=== PATIENT | male | born 1955 | race Caucasian/White ===

== ENCOUNTER 2016-10-01 08:17 | Inpatient (IN) | payer MEDICARE ==
--- NOTE | ~2016-10-01 | CR144 ---
[facility] A Service of [facility] & [facility] RADIOLOGY TEXT RESULTS PATIENT: DARYL RAMIREZ LOCATION: [facility] 45- : 54 UNIT #: [id number] AGE: [address]: Ajit Segura MD SEX: M ORDER DR: [id number] [facility] [address] [facility]. [place], [place] [address] [id number] MR#: [id number] Acc #: [id number] NAME: DARYL RAMIREZ. : 1955 SEX: M STUDY DATE/TIME: 10/01/2016 12:15 UNIT: [facility] ROOM: [facility] STUDY DESCRIPTION: CR Hip 1 View Lt Attending Physician: Ajit Segura M.D. Ordering Physician: Ajit Segura M.D. Primary Care Physician: Alberto Lyles MEDICAL IMAGING REPORT This report is preliminary unless electronic signature is present EXAM Left hip one-view DATE OF STUDY: 10/01/2016. COMPARISON STUDY: 07/31/2016 HISTORY Status post left hip arthroplasty. Single AP view is obtained immediately postoperatively. The left hip prosthesis appears in appropriate position and alignment. CONCLUSION Expected postop appearance following left total hip arthroplasty. Dictated by... Bruce Terrazas M.D. THIS IS AN ELECTRONICALLY VERIFIED REPORT Bruce Terrazas M.D. at 10/01/2016 5:06 PM LAURA/danika TD: 10/01/2016 14:05 JOB #: [id number] MEDICAL IMAGING REPORT COPY
--- NOTE | ~2016-10-01 | DS ---
Unit #: [id number] #: [id number] Patient: DARYL WILSON [id number] [address] [address] [id number] MR#: [id number] NAME: DARYL WILSON ROOM: 459 Age: 61 Sex: M Admission Date: 10/01/2016 : 1955 Discharge Date: 10/02/2016 Attending Physician: Ajit Segura M.D. Primary Care Physician: Alberto Lyles DISCHARGE SUMMARY ADMITTING DIAGNOSIS Left hip osteoarthritis. DISCHARGE DIAGNOSIS Left hip osteoarthritis. HOSPITAL COURSE On 10/01/2016, Mr. Wilson was admitted and underwent a left total hip arthroplasty. Tolerated the procedure well. He was transported to the 4th floor where he underwent physical therapy, medical management and anticoagulation therapy. He is doing well and is ready to be discharged. DISPOSITION Stable. DISCHARGE Discharge home with home health. MEDICATIONS Medications on discharge include his routine home meds in addition to [place] 10/325. He is on Coumadin although his dose today is held. FOLLOWUP AND INSTRUCTIONS Mr. Wilson is going to be discharged home with home health. The patient is on Coumadin for DVT prophylaxis. The PT and INR is to be drawn every Saturday and in addition to tomorrow. Please call the results in at [phone] or fax to [phone], attention Tenzin. Skin gurwinder are to be DC'd two weeks postop. Physical therapy is to be done for ambulation and dislocation precautions. The patient is on a walker for four weeks and a cane for an additional two weeks. Followup appointment with Dr. Segura is in six weeks. Please call our office for that appointment date and time. Dictated by... Jennifer MerchantC. for Ajit Segura M.D. ALICIA/katrin TD: 10/05/2016 05:47 JOB #: [id number] Unit #: [id number] #: [id number] Patient: DARYL WILSON DISCHARGE SUMMARY X Sonali Lozano X DISCHARGE SUMMARY
--- NOTE | ~2016-10-01 | OR ---
Unit #: [id number] #: [id number] Patient: DARYL RAMIREZ [id number] [facility]. [place], [place] [address] [id number] MR#: [id number] NAME: DARYL RAMIREZ ROOM: 459 Date of Procedure: 10/01/2016 Admission Date: 10/01/2016 Surgeon: Ajit Segura M.D. : 1955 Attending Physician: Ajit Segura M.D. Primary Care Physician: Alberto Lyles OPERATIVE REPORT PREOPERATIVE DIAGNOSIS Avascular necrosis of left hip. POSTOPERATIVE DIAGNOSIS Avascular necrosis of left hip. PROCEDURE PERFORMED Left total hip. ASSISTANTS Sonali Lozano and Meir Harding. ANESTHESIA General. ESTIMATED BLOOD LOSS 500 mL. INDICATIONS FOR SURGERY This is a 61-year-old gentleman with severe pain in his left hip. He has had pain for months. It is getting progressively worse. At first, they thought it was coming from his back. Did get x-rays which eventually showed in the left hip with clots and arthritis. He is brought to the hospital today for left total hip replacement. DESCRIPTION OF PROCEDURE The patient was brought to the holding room given 2 g Kefzol. This will be continued postop, but discontinued within 23 hours the start time of surgery. He was then given a general anesthetic, placed on decubitus position with the left side up. The left hip was prepped and draped in a sterile fashion. A modified Aufranc incision was mapped out and made. The subcu dissected away and the fascia split longitudinally. Short rotators were taken down with the cautery unit. The posterior hip capsule was identified and this was T'd open. The hip was then dislocated. The neck osteotomy performed and the head fragment removed. Femur retracted anteriorly. The labrum debrided and the acetabulum was reamed up to a size 55. A 56 mm pinnacle Gription cup was inserted in 40 degrees of abduction and 20 degrees of forward flexion. Piriformis sinus was cleaned out with a rongeur and a knife. Starter reamer was passed down. Rigid reamers were used up to a size 5 and the broaches were used up to a size 5. Trial reduction was carried out. We found we needed a standard 36 trial head appropriate leg length and good stability. We then Unit #: [id number] #: [id number] Patient: DARYL RAMIREZ removed all the trials. The incision was injected with the ropivacaine mixture. The real liner was impacted into the cup. We used a +14 degrees femoral component was impacted into the femur in 20 degrees of anteversion we did an another trial reduction with a 1.5, 36 head trial. Once again the stability was excellent in all directions and leg lengths were appropriate so the real components were opened and assembled, and the patient had the hip reduced, irrigated with Betadine and bacitracin. The capsule was repaired with 0 Vicryl. The fascia was closed with a running #2 STRATAFIX suture. The subcu was closed with 0 and 2-0 Vicryl and gurwinder in the skin. periodontal assistant, Sonali Lozano was present throughout the entire case. Dictated by... Kermit Mccallum/kj TD: 10/01/2016 20:27 JOB #: [id number] OPERATIVE REPORT X Ajit Segura MD X PROCEDURE OPERATIVE NOTE
[~2016-10-01 08:17] MED LIST: DIAZEPAM10 MG PO; EFFEXOR75 MG PO; GABAPENTIN400 M2 PO; MOBIC PO; MULTI VITAMIN1 EACH PO; OXYCODONE HCL20 M1 PO; VITAMIN C500 M1 PO; ZYRTEC10 M1 PO
[2016-10-01 09:18] LABS: HEMATOCRIT 38.6 % (38.0-50.0); HEMOGLOBIN 13.6 gm/dL (13.0-16.0); MEAN CELL VOLUME 89.5 FL (83-96); MEAN CORPUSCULAR HEMOGLOBIN 31.5 PG (28-34); MEAN CORPUSCULAR HGB CONC 35.3 g/dL (30-36); MEAN PLATELET VOLUME 6.9 FL (6.5-11.5); RED BLOOD COUNT 4.31 X10e (3.90-5.60); RED CELL DISTRIBUTION WIDTH 13.4 % (11.0-15.5); WHITE BLOOD COUNT 8.9 X10e3 (4.0-10.5)
[2016-10-01 09:46] LABS: INR 1.2; PROTHROMBIN TIME (PATIENT) 12.9 SECONDS (9.6-11.5)
[2016-10-02 03:53] LABS: HEMATOCRIT 32.7 % (38.0-50.0)
[2016-10-02 03:56] LABS: HEMOGLOBIN 11.3 gm/dL (13.0-16.0)
[2016-10-02 04:07] LABS: INR 2.5
[2016-10-02 04:08] LABS: PROTHROMBIN TIME (PATIENT) 26.8 SECONDS (9.6-11.5)
[2016-10-02 05:06] LABS: BLOOD UREA NITROGEN 14 mg/dL (9-23); CALCIUM SERUM 8.6 mg/dL (8.4-10.2); CARBON DIOXIDE 30 mmol/L (22-31); CHLORIDE 100 mmol/L (100-111); GLOM FILT RATE Estimated ABOVE60 mL/min (>60); GLUCOSE FASTING 145 mg/dL (70-110); MAGNESIUM 1.9 mg/dL (1.6-3.0); SODIUM 134 mmol/L (135-145)
[2016-10-02] MEDS ORDERED: NORCO 10-325 TA1 TAB PO (10:41)
[2016-10-02] MEDS ORDERED: MAXITROL EYE DRO5 ML OS (11:50)
[2016-10-02] MEDS ORDERED: VALIUM10 MG PO (12:09)
[2016-10-02] MEDS ORDERED: PERCOCET 10/3251 TAB PO (12:10)
== END 2016-10-02 16:55 | disposition home health service (06) | DRG 470 ==
LOC: CSUR 08:17 → CPACUOF 10:00 → C4B 13:50
PROVIDERS: Nurse Practitioner; Orthopaedic Surgery
PROC: 0SRB04Z Replacement of Left Hip Joint with Ceramic on Polyethylene Synthetic Substitute, Open Approach (ICD-10-PCS; principal; 2016-10-01 10:00)
DX: M87.852 Other osteonecrosis, left femur (principal); D64.9 Anemia, unspecified; M16.12 Unilateral primary osteoarthritis, left hip; Z79.01 Long term (current) use of anticoagulants; Z56.0 Unemployment, unspecified; F41.8 Other specified anxiety disorders; S05.02XA Injury of conjunctiva and corneal abrasion without foreign body, left eye, initial encounter
CPT/HCPCS: 73501; 80048; 83735; 84295; 85014; 85018; 85027; 85610; 94761; 97110; 97116; 97162; 97166; 97530; C1776; G8978-GP; G8979-GP; G8980-GP; G8987-GO; G8988-GO; G8989-GO; J0131; J0171; J0690; J0735; J1100; J1170; J1885; J2250; J2405; J2795; J3010